=== PATIENT | male | born 1940 | race Hispanic/Latino ===

== ENCOUNTER 2016-08-19 22:17 | Observation (INO) | payer MEDICARE ==
[2016-08-19 22:45] VITALS: BMI 35.3
--- NOTE | 2016-08-19 22:55 | ED PDOC ---
Arrival/HPI - General Time Seen by Provider: 08/19/16 22:27 Historian: Patient - History of Present Illness Narrative History of Present Illness (Text): 08/19/16 22:55 Silvino Lynch is a 76 year old male, whose past medical history includes colon cancer s/p right hemicolectomy, PE, spinal stenosis, polyneuropathy of bilateral lower extremities, prostate cancer, melanoma, hypertension, and anxiety, who presents to the Emergency department complaining of near-syncope. Patient states he has been experiencing dizziness, headache, unsteady gait, and notes he feels near-syncopal at times. Patient state he saw his neurologist for similar complaints and was advised to come to the ED. Patient reports shortness of breath, none currently. Patient also complaining of left lower back spasms secondary to spinal stenosis today, worsened with movement, and right ankle swelling which began 3 days ago. Patient denies any fever, chills, chest pain, nausea, vomiting, diarrhea, urinary symptoms, neck pain, recent trauma/fall, or any other complaints. PMD: Dr. Paula Angel Neurologist: Dr. Pedraza Pain Management: Dr. Bass Symptom Onset: Gradual Symptom Course: Unchanged Activities at Onset: Rest, Light Context: Home Past Medical History - Provider Review Nursing Documentation Reviewed: Yes - Cardiac Hx Cardiac Disorders: Yes Hx Hypertension: Yes Hx Peripheral Edema: Yes - Pulmonary Hx Respiratory Disorders: Yes (MULTIPLE BILATERAL PULMONARY EMBOLUS 11-14-16) Hx Pneumonia: Yes - Neurological Hx Neurological Disorder: No (LOWER EXTREMITY NEUROPATHY) - HEENT Hx HEENT Disorder: Yes (WEARS GLASSES) - Renal Hx Renal Disorder: No - Endocrine/Metabolic Hx Endocrine Disorders: Yes Hx Hypothyroidism: Yes - Hematological/Oncological Hx Blood Disorders: No - Integumentary Hx Dermatological Disorder: Yes Hx Basal Cell Carcinoma: Yes (REMOVED FROM HEAD) Hx Melanoma: Yes (MOH'S SX) - Musculoskeletal/Rheumatological Hx Musculoskeletal Disorders: Yes Hx Back Pain: Yes (lumbar) Hx Falls: Yes Hx Fractures: Yes (right elbow) Hx Osteoarthritis: Yes - Gastrointestinal Hx Gastrointestinal Disorders: Yes (RIGHT HEMICOLECTOMY,COLON TUMOR REMOVED 2011 -COLON CA) Hx Gastroesophageal Reflux: Yes - Genitourinary/Gynecological Hx Genitourinary Disorders: Yes Hx Incontinence: Yes Hx Prostate Problems: Yes (elevated PSA,PROSTATE CA,BPH) - Psychiatric Hx Psychophysiologic Disorder: Yes Hx Anxiety: Yes Hx Depression: Yes Hx Substance Use: No - Surgical History Other/Comment: basal cell carcinoma removed from head - Anesthesia Hx Anesthesia: Yes Hx Anesthesia Reactions: No Hx Malignant Hyperthermia: No - Suicidal Assessment Feels Threatened In Home Enviroment: No Family/Social History - Physician Review Nursing Documentation Reviewed: Yes Family/Social History: No Known Family HX Smoking Status: Former Smoker Hx Alcohol Use: Yes (SOCIALLY) Hx Substance Use: No Hx Substance Use Treatment: No Allergies/Home Meds Allergies/Adverse Reactions: Allergies terazosin Allergy (Verified 08/19/16 22:39) RASH seasonal allergy Allergy (Mild, Uncoded 08/19/16 22:39) sneezing Home Medications: Home Meds Medication Instructions Recorded Confirmed Cholecalciferol (Vitamin D3) 2,400 unit NA DAILY 12/25/13 08/19/16 [Vitamin D3] Oxybutynin Chloride [Oxybutynin] 10 mg PO DAILY 12/25/13 08/20/16 Pantoprazole [Protonix] 40 mg PO DAILY 12/25/13 08/20/16 buPROPion SR [Wellbutrin SR] 150 mg PO BID 12/25/13 08/20/16 Diltiazem HCl [Cardizem Cd] 240 mg PO DAILY 11/15/15 08/20/16 Gabapentin [Neurontin] 400 mg PO QID 11/15/15 08/19/16 LORazepam [Ativan] 0.5 mg PO DAILY 11/15/15 08/20/16 Methocarbamol [Robaxin] 500 mg PO TID 11/15/15 08/19/16 Mirtazapine [Remeron] 15 mg PO DAILY 11/15/15 08/19/16 Apixaban [Eliquis] 10 mg PO BID 11/18/15 08/20/16 Aspirin [Ecotrin] 81 mg PO DAILY 11/18/15 08/19/16 Gabapentin [Neurontin] 800 mg PO HS 11/18/15 08/20/16 hydrALAZINE [Apresoline] 50 mg PO TID 11/18/15 08/19/16 Mirabegron [Myrbetriq] 65 mg PO DAILY 08/20/16 08/20/16 Review of Systems - Physician Review All systems were reviewed & negative as marked: Yes - Review of Systems Constitutional: Normal. absent: Fevers Eyes: Normal ENT: Normal Respiratory: SOB. absent: Cough Cardiovascular: Normal. absent: Chest Pain Gastrointestinal: Normal. absent: Abdominal Pain, Diarrhea, Nausea, Vomiting Genitourinary Male: Normal. absent: Dysuria, Frequency, Hematuria, Urinary Output Changes Musculoskeletal: Arthralgias (+right ankle swelling), Back Pain. absent: Neck Pain Skin: Normal. absent: Rash Neurological: Headache, Gait Changes (+unsteady), Other (+near-syncopal) Endocrine: Normal Hemo/Lymphatic: Normal Psychiatric: Normal Physical Exam Vital Signs Reviewed: Yes Vital Signs Temp Pulse Resp BP Pulse Ox 08/20/16 02:51 78 16 158/98 H 98 08/19/16 22:34 98.4 F 80 20 161/89 H 97 Temperature: Afebrile Blood Pressure: Hypertensive Pulse: Regular Respiratory Rate: Normal Appearance: Positive for: Well-Appearing, Non-Toxic, Comfortable Pain Distress: None Mental Status: Positive for: Alert and Oriented X 3 - Systems Exam Head: Present: Atraumatic, Normocephalic Pupils: Present: PERRL Extroacular Muscles: Present: EOMI Conjunctiva: Present: Normal Mouth: Present: Moist Mucous Membranes Neck: Present: Normal Range of Motion. No: Meningeal Signs, MIDLINE TENDERNESS , Paraspinal Tenderness Respiratory/Chest: Present: Clear to Auscultation, Good Air Exchange. No: Respiratory Distress, Accessory Muscle Use Cardiovascular: Present: Regular Rate and Rhythm, Normal S1, S2. No: Murmurs Abdomen: Present: Normal Bowel Sounds. No: Tenderness, Distention, Peritoneal Signs Back: Present: Normal Inspection Upper Extremity: Present: Normal Inspection. No: Cyanosis, Edema Lower Extremity: Present: Normal ROM, Swelling (Swelling to right lateral ankle) . No: Edema, Tenderness, Erythema, Deformity, Temperature Abnormalties Neurological: Present: GCS=15, CN II-XII Intact, Speech Normal Skin: Present: Warm, Dry, Normal Color. No: Rashes Psychiatric: Present: Alert, Oriented x 3, Normal Insight, Normal Concentration Medical Decision Making ED Course and Treatment: 08/19/16 22:55 Impression: 76 year old male complaining of near syncope, headache, and dizziness. Also complaining of shortness of breath, right ankle swelling, and left lower back pain. Plan: -- CTA Chest w/o contrast -- CT Head w/o contrast -- CT Lumbar Spine w/o contrast -- EKG -- Chest X-ray -- XR Right Ankle -- Labs, BNP, cardiac enzymes -- UA -- Reassess and disposition Prior Visits: Notes and results from previous visits were reviewed. Progress Notes: Reviewed EKG, NSR at 78 bpm. 1st degree AV block. Non-specific ST/T wave changes. 08/20/16 00:16 Reviewed Chest X-ray, shows no acute processes. XR Right Ankle shows no acute processes, no fracture. 08/20/16 01:53 CT Head shows: 1. No evidence for acute intracranial abnormality or displaced calvarial fracture. 2. Additional incidental and/or chronic findings as described. CTA Chest shows: 1. There is mild left hilar adenopathy. 2. There is no evidence for large or central pulmonary embolism. Motion artifact limits evaluation of smaller branches. 3. The lungs are free of significant consolidation, pleural effusion or pneumothorax. CT Lumbar Spine shows: 1. No fracture. 2. If back pain persists, consider MRI for further evaluation. 3. Incidental/non-acute findings are described above. 08/20/16 01:[address] Angel, who is aware and agrees with plan. Accepts pt in to his service. Pt will go to Telemetry observation for near-syncope. Requests Dr. Bay on consult and Dr. Alvarez on consult. - Lab Interpretations Lab Results: 08/19/16 23:20 08/19/16 23:20 Lab Results 08/20/16 00:02: Urine Color Yellow, Urine Appearance Clear, Urine pH 6.0, Ur Specific Worden 1.025, Urine Protein Negative, Urine Glucose (UA) Negative, Urine Ketones Negative, Urine Blood Negative, Urine Nitrate Negative, Urine Bilirubin Negative, Urine Urobilinogen 0.2, Ur Leukocyte Esterase Negative 08/19/16 23:20: WBC 5.2, RBC 3.70, Hgb 13.3 L, Hct 39.1 L, MCV 105.7 H, MCH 35.9 H, MCHC 34.0, RDW 13.4, Plt Count 189, MPV 11.0 08/19/16 23:20: Sodium 141, Potassium 4.6, Chloride 104, Carbon Dioxide 28, Anion Gap 14, BUN 18, Creatinine 1.1, Est GFR ( Amer) > 60, Est GFR (Non- Af Amer) > 60, Random Glucose 92, Calcium 9.5, Total Bilirubin 0.6, AST 59, ALT 84 H, Alkaline Phosphatase 48, Lactate Dehydrogenase 585, Total Creatine Kinase 144, Troponin I < 0.01 D, NT-Pro-B Natriuret Pep 113, Total Protein 7.5, Albumin 4.3, Globulin 3.2, Albumin/Globulin Ratio 1.3 08/19/16 23:20: PT 11.2, INR 1.04, APTT 31.0 H I have reviewed the lab results: Yes - RAD Interpretation Narrative RAD Interpretations (Text): Chest X-ray shows no acute processes. XR Right Ankle shows no acute processes, no fracture. CT Head shows: Brain: There is mild prominence of ventricles and sulci, compatible with mild atrophy. There is no evidence of intracranial hemorrhage. No evidence of acute territorial infarction. No significant white matter disease. No edema. Ventricles: See above. Bones/joints: Unremarkable. No acute fracture. Soft tissues: Unremarkable. Sinuses: Unremarkable as visualized. No acute sinusitis. Mastoid air cells: Unremarkable as visualized. No mastoid effusion. IMPRESSION: 1. No evidence for acute intracranial abnormality or displaced calvarial fracture. 2. Additional incidental and/or chronic findings as described. CTA Chest shows: Pulmonary arteries: There is no evidence for large or central pulmonary embolism. Motion artifact limits evaluation of smaller branches. Aorta: Thoracic aorta is mildly atherosclerotic without aneurysm. Lungs: Mild biapical scarring. Mild atelectasis and/or scarring in the bases. No mass. Pleural space: The lungs are free of significant consolidation, pleural effusion or pneumothorax. Heart: The heart is not enlarged. No significant pericardial effusion. No evidence of RV dysfunction. Mediastinum: Tiny hiatal hernia. Thyroid: The thyroid is normal in size and position. Bones/joints: There are moderate degenerative changes present. There is mild diffuse osteopenia. No acute fracture. No dislocation. Soft tissues: Unremarkable. Lymph nodes: There is mild left hilar adenopathy. There is no axillary adenopathy. There is no mediastinal lymphadenopathy. Upper abdomen: Scans through the upper abdomen demonstrate no definite acute abnormalities. IMPRESSION: 1. There is mild left hilar adenopathy. 2. There is no evidence for large or central pulmonary embolism. Motion artifact limits evaluation of smaller branches. 3. The lungs are free of significant consolidation, pleural effusion or pneumothorax. CT Lumbar Spine shows: Vertebrae: No acute fracture. Reversal of lumbar lordosis. Mild scoliosis. Facet osteoarthrosis within lumbar spine. Discs/spinal canal/neural foramina: [id number] degenerative disc disease throughout lumbar spine. Mild disc herniations at several levels, suboptimally evaluated. Severe central canal stenosis at L1-L2 level. Multilevel neuroforaminal narrowing. Soft tissues: Unremarkable. Vasculature: Atherosclerotic disease of visualized arteries. Mild aneurysmal dilatation of infrarenal aorta, up to 3.4 cm. Stomach and bowel: Colonic diverticula. IMPRESSION: 1. No fracture. 2. If back pain persists, consider MRI for further evaluation. 3. Incidental/non-acute findings are described above. Radiology Orders: 08/19/16 23:01 HEAD W/O CONTRAST [CT] Stat 08/19/16 23:03 CHEST PORTABLE [RAD] Stat ANKLE RIGHT 3 VIEWS ROUTINE [RAD] Stat 08/19/16 23:04 ANGIO CHEST PE PROTOCOL [CT] Stat 08/19/16 23:05 LUMBAR SPINE W/CONTRAST [CT] Stat Baller Tender: ED Physician, Radiologist - EKG Interpretation Interpreted by ED Physician: Yes Type: 12 lead EKG - Medication Orders Current Medication Orders: Discontinued Medications Acetaminophen (Tylenol 325mg Tab) 650 mg PO STAT STA Stop: 08/20/16 01:54 Last Admin: 08/20/16 02:19 Dose: 650 mg Cyclobenzaprine HCl (Flexeril) 10 mg PO ONCE ONE Stop: 08/20/16 01:54 Last Admin: 08/20/16 02:14 Dose: 10 mg Iodixanol (Visipaque 320 Mg/Ml 100 Ml) Confirm Administered Dose 100 ml IV .STK- MED ONE Stop: 08/20/16 00:29 - Scribe Statement The provider has reviewed the documentation as recorded by the Scribtali Amato All medical record entries made by the Scribe were at my direction and personally dictated by me. I have reviewed the chart and agree that the record accurately reflects my personal performance of the history, physical exam, medical decision making, and the department course for this patient. I have also personally directed, reviewed, and agree with the discharge instructions and disposition. Disposition/Present on Arrival - Present on Arrival Any Indicators Present on Arrival: No History of DVT/PE: Yes History of Uncontrolled Diabetes: No Urinary Catheter: No History of Decub. Ulcer: No History Surgical Site Infection Following: None - Disposition Have Diagnosis and Disposition been Completed?: Yes Diagnosis: Near syncope, Back pain Disposition: HOSPITALIZED Disposition Time: 02:50 Patient Plan: Observation Patient Problems: Current Active Problems Problem Status Onset Back pain Acute Near syncope Acute Condition: STABLE Referrals: Marin Angel MD [Primary Care Provider] - Follow up with primary
[2016-08-19 23:35] LABS: HEMATOCRIT 39.1 % (42.0-52.0); MEAN CELL VOLUME 105.7 fL (80.0-105.0); MEAN CORPUSCULAR HEMOGLOBIN 35.9 pg (25.0-35.0); RED CELL DISTRIBUTION WIDTH 13.4 % (11.5-14.5); WHITE BLOOD COUNT 5.2 10^3/ul (4.5-11.0)
[2016-08-19 23:48] LABS: INR 1.04 (0.93-1.08)
[2016-08-20] LABS: ALB/GLOB RATIO 1.3 (1.1-1.8); ALKALINE PHOSPHATASE 48 U/L (38-133); ALT/SGPT 84 U/L (7-56); AST/SGOT 59 U/L (15-59); BILIRUBIN,TOTAL 0.6 mg/dL (0.2-1.3); BLOOD UREA NITROGEN 18 mg/dL (7-21); CALCIUM 9.5 mg/dL (8.4-10.5); CARBON DIOXIDE 28 mmol/L (21-33); CHLORIDE 104 mmol/L (98-107); GFR AFRICAN-AMERICAN > 60; GLUCOSE,RANDOM 92 mg/dL (70-110); POTASSIUM 4.6 mmol/L (3.6-5.0); SODIUM 141 mmol/L (132-148); TOTAL PROTEIN 7.5 g/dL (5.8-8.3)
[2016-08-20 00:18] LABS: TROPONIN I < 0.01 ng/mL
[2016-08-20 00:28] LABS: URINE BILIRUBIN NEGATIVE (NEGATIVE); URINE BLOOD NEGATIVE (NEGATIVE); URINE GLUCOSE (UA) NEGATIVE (NEGATIVE); URINE KETONE NEGATIVE (NEGATIVE); URINE LEUKOCYTE ESTERASE NEGATIVE Leu/uL (NEGATIVE); URINE PROTEIN NEGATIVE mg/dL (<30 mg/dL); URINE UROBILINOGEN 0.2 E.U./dL (<1 E.U./dL)
[2016-08-20] MEDS ORDERED: Iodixanol 320 MG/ML 100 ML BOTTLE IV ONE (00:28)
[2016-08-20 00:29] LABS: URINE APPEARANCE CLEAR (CLEAR); URINE COLOR YELLOW (YELLOW)
--- NOTE | 2016-08-20 00:51 | CT ---
EXAM: CT Head Without Intravenous Contrast CLINICAL HISTORY: 76 years old, male; Pain; Headache; Headache not specified; Additional info: Dizzy TECHNIQUE: Axial computed tomography images of the head/brain without intravenous contrast. This CT exam was performed using one or more of the following dose reduction techniques: automated exposure control, adjustment of the mA and/or kV according to patient size, and/or use of iterative reconstruction technique. COMPARISON: No relevant prior studies available. FINDINGS: Brain: There is mild prominence of ventricles and sulci, compatible with mild atrophy. There is no evidence of intracranial hemorrhage. No evidence of acute territorial infarction. No significant white matter disease. No edema. Ventricles: See above. Bones/joints: Unremarkable. No acute fracture. Soft tissues: Unremarkable. Sinuses: Unremarkable as visualized. No acute sinusitis. Mastoid air cells: Unremarkable as visualized. No mastoid effusion. IMPRESSION: 1. No evidence for acute intracranial abnormality or displaced calvarial fracture. 2. Additional incidental and/or chronic findings as described.
--- NOTE | 2016-08-20 01:51 | CT ---
EXAM: CT Lumbar Spine With Intravenous Contrast CLINICAL HISTORY: 76 years old, male; Pain; Low back pain; Additional info: Back pain/hx. Spinal stenosis TECHNIQUE: Axial computed tomography images of the lumbar spine with intravenous contrast. This CT exam was performed using one or more of the following dose reduction techniques: automated exposure control, adjustment of the mA and/or kV according to patient size, and/or use of iterative reconstruction technique. Coronal and sagittal reformatted images were created and reviewed. CONTRAST: 100 mL of VISI administered intravenously. COMPARISON: No relevant prior studies available. FINDINGS: Vertebrae: No acute fracture. Reversal of lumbar lordosis. Mild scoliosis. Facet osteoarthrosis within lumbar spine. Discs/spinal canal/neural foramina: [id number] degenerative disc disease throughout lumbar spine. Mild disc herniations at several levels, suboptimally evaluated. Severe central canal stenosis at L1-L2 level. Multilevel neuroforaminal narrowing. Soft tissues: Unremarkable. Vasculature: Atherosclerotic disease of visualized arteries. Mild aneurysmal dilatation of infrarenal aorta, up to 3.4 cm. Stomach and bowel: Colonic diverticula. IMPRESSION: 1. No fracture. 2. If back pain persists, consider MRI for further evaluation. 3. Incidental/non-acute findings are described above.
[2016-08-20] MEDS: Pantoprazole 40 mg EC Tab PO SCH ×2 (09:38→09:39)
[2016-08-20] MEDS: diltiaZEM 240 mg/24 Hours CD Cap PO SCH (09:39)
[2016-08-20] MEDS: buPROPion SR 150 MG TABLET PO SCH ×2 (09:39→18:20)
[2016-08-20] MEDS: Methocarbamol 500 MG Tab PO SCH ×3 (09:39→18:20)
[2016-08-20] MEDS: MIRABEGRON PO SCH (09:40)
[2016-08-20] MEDS: CHOLECALCIFEROL SCH (09:40)
[2016-08-20] MEDS ORDERED: CHOLECALCIFEROL SCH (10:00)
--- NOTE | 2016-08-20 10:14 | RAD ---
PROCEDURE: Right Ankle Radiographs. HISTORY: swelling COMPARISON: None FINDINGS: BONES: Normal. No fracture. JOINTS: Normal. No osteoarthritis. Ankle mortise maintained. Talar dome intact SOFT TISSUES: Lateral soft tissue swelling without distal fibular abnormality. OTHER FINDINGS: None. IMPRESSION: Soft tissue swelling without acute articular or osseous abnormality.
--- NOTE | 2016-08-20 10:15 | RAD ---
HISTORY: dizzy COMPARISON: 11/15/2015 FINDINGS: LUNGS: No active pulmonary disease. PLEURA: No significant pleural effusion identified, no pneumothorax apparent. CARDIOVASCULAR: No radiographic findings to suggest acute or significant cardiovascular disease. OSSEOUS STRUCTURES: No significant abnormalities. VISUALIZED UPPER ABDOMEN: Normal. OTHER FINDINGS: None. IMPRESSION: No active disease. No significant interval change compared to the prior examination(s).
--- NOTE | 2016-08-20 10:37 | CARD ---
APPROVED REPORT EKG Measurement Heart [id number] MA 226P [id number] <Conclusion> Sinus rhythm with 1st degree AV block No change
--- NOTE | 2016-08-20 13:28 | CON ---
DATE: 08/20/2016 CHIEF COMPLAINT: Dizziness, headache and low back pain. HISTORY OF PRESENT ILLNESS: This is a 76-year-old man with past medical history of colon cancer, sta tus post right hemicolectomy, PE, on Eliquis, history of severe spinal stenosis, especially at L1-L2, history of chronic back pain, history of severe sensorimotor polyneuropathy in bilateral lower extre mities, likely the result of his underlying cancer, history of prostate cancer, melanoma, hypertensio n, anxiety, who was brought to the Emergency Department because of near syncope, felt dizziness in te mya of lightheadedness and diffuse pressure headache and feels unsteady on his gait. He mentions dora t he has been taking extra gabapentin than usual due to the severe back pain. His low back pain radi ates down both legs, left worse than right, has left lower back spasms, which is making it difficult to lie flat down, which is aggravated by movement and prolonged positions. He also has urinary urgen cy and cannot hold his urine at times. He is currently no longer dizzy. His blood pressures are sta ble, slightly hypertensive. He underwent a CAT scan of his lumbosacral spine, which showed severe ce ntral canal stenosis at L1-L2, multiple neuroforaminal narrowing, mild disk herniation in several lev els of the lumbar spine and degenerative arthritis. CT head showed no acute intracranial abnormaliti es. He follows a neurologist named Dr. Pedraza, and his pain management with Dr. Bass. No focal weakness of the extremities. PAST MEDICAL HISTORY: History of melanoma, history of prostate cancer, history of colon cancer, stat us post right hemicolectomy, history of PE on Eliquis, history of chronic low back pain, chronic spin al stenosis in the lumbosacral area, sensorimotor polyneuropathy done by EMG by his neurologist of th e bilateral lower extremities, likely from underlying cancer and prolonged alcohol use in the past. REVIEW OF SYSTEMS: A 14-point review of systems is negative except as in the HPI. ALLERGIES: ALLERGIC TO TERAZOSIN and has seasonal allergies. MEDICATIONS: Reviewed via nurse's reconciliation sheet. SOCIAL HISTORY: No illicit drug use, smoking, or ETOH abuse at this time. FAMILY HISTORY: Noncontributory. PHYSICAL EXAMINATION: VITAL SIGNS: Temperature 98.2, pulse rate 76, blood pressure 154/89, respiratory rate of 18, oxygen saturation 98% on room air. GENERAL: The patient is sitting up in bed in no acute distress. HEENT: Atraumatic, normocephalic. PERRLA, extraocular muscles are intact. NECK: Supple, no JVD, no adenopathy noted. LUNGS: Clear to auscultation. No adventitious sounds. HEART: S1, S2, normal rate and rhythm. No murmurs, rubs, or gallops. ABDOMEN: Soft, nontender, nondistended. Bowel sounds present. EXTREMITIES: No clubbing, no cyanosis. Peripheral pulses 2+ felt bilaterally. NEUROLOGIC: The patient is alert, oriented to person, place, month and year. Speech is fluent, with out any errors. Cranial nerves II through XII are intact. MOTOR: Moves all extremities equally. No atrophy noted. SENSORY: Decreased light touch and pinprick up to the calves bilaterally. Decreased vibration of th e toes and knees. Proprioception is intact. DTRs are 2+ throughout and 1 at the knees, and 1 at the ankles. COORDINATION: [id number] intact. GAIT: Deferred for now. MUSCULOSKELETAL: Has lumbosacral tightness. LABORATORY DATA: Sodium is 141, potassium 4.6, chloride 104, carbon dioxide 28, BUN of 18, creatinin e 1.1. Random glucose of 92. ASSESSMENT AND PLAN: This is a 76-year-old man with history of melanoma, history of prostate cancer, history of colon cancer, status post right hemicolectomy, history of pulmonary embolism on Eliquis, history of chronic low back pain with spinal stenosis on L1-L2, history of sensorimotor polyneuropath y in bilateral lower extremities, likely from cancer history, history of hypertension and anxiety who presented with dizziness, headache, unsteady gait and low back pain. His dizziness and headache is likely from his underlying pain from the low back as well as superimposed underlying overuse of his g abapentin that he has been popping extras which he admitted. His unsteady gait is from his underlyin g polyneuropathy from his underlying history of cancer which makes his gait unsteady and superimposed underlying lumbosacral stenosis. His low back pain, especially on the left, which is more of a lumb osacral radiculopathy, is likely from degenerative joint disease and his severe lumbar stenosis at L1 -L2, according to his CAT scan of lumbosacral spine causing him to be in intense pain. At this time, recommend: 1. An MRI of the lumbosacral spine to further assess the degree of stenosis. 2. Neurosurgical evaluation since this pain has become debilitating in his lower back. 3. Get pain management consultation for adjustment of his medications. 4. Avoid overuse of gabapentin gabapentin 400 mg p.o. q.i.d. and occasionally at bedtime of 80 0, but hold off 800 if he is feeling dizzy. 5. He is on methocarbamol 500 mg p.o. t.i.d. for low back pain spasms. 6. Continue his gabapentin minimum of 400 p.o. q.i.d. for neuropathic pain from his underlying polyn europathy from underlying malignancy. 7. Continue with aspirin and Eliquis for stroke prevention and continue with current present medical management. He will need physical therapy evaluation. May require subacute rehabilitation at this time. Thank you for this consult. Rickey Bay MD cc: [id number] TT: 08/20/2016 13:28:17 Confirmation # [id number] Dictation # [id number] tana
[2016-08-20] MEDS ORDERED: Pneumococcal 23-Valent Vaccine IM ONE (15:37)
--- NOTE | 2016-08-21 08:46 | CT ---
PROCEDURE: CT Chest with contrast (Pulmonary Angiogram) HISTORY: Shortness of breath. COMPARISON: 11/15/2015. Summary of findings on the comparison examination: Bilateral pulmonary emboli upper and lower lobe branches. TECHNIQUE: Axial computed tomography images were obtained of the chest in the pulmonary arterial phase of enhancement. Coronal and sagittal reformatted images were created and reviewed. Intravenous contrast dose: 100 cc Visipaque 320. Mean Hounsfield unit values in the main pulmonary artery: 305.08 Radiation dose: Total exam DLP = 11.89 mGy-cm. This CT exam was performed using one or more of the following dose reduction techniques: Automated exposure control, adjustment of the mA and/or kV according to patient size, and/or use of iterative reconstruction technique. FINDINGS: PULMONARY ARTERIES: Unremarkable. No pulmonary embolism. AORTA: No acute findings. No thoracic aortic aneurysm. LUNGS: Unremarkable. No nodule, mass or pulmonary consolidation. PLEURAL SPACES: Unremarkable. No effusion or pneuomothorax. HEART: Unremarkable. No cardiomegaly. No significant pericardial effusion. LYMPH NODES: No lymphadenopathy. BONES, CHEST WALL: Unremarkable. No fracture or destructive lesion OTHER FINDINGS: Unremarkable. IMPRESSION: Unremarkable CT pulmonary angiogram. No pulmonary embolus.Limitations of the current examination: Patient related motion induced artifact precludes optimal assessment at and beyond the segmental pulmonary artery branches level. Concordant results (preliminary interpretation) provided by Gongpingjia. Procedure Completed: 00:35. Preliminary ([facility]) Report: Dictated and Authenticated: 01:09. Final Interpretation: 08:44. August 21, 2016.
[2016-08-21] MEDS: oxyCODONE 5 mg Immediate Release Tab PO PRN (09:13)
[2016-08-21] MEDS: diltiaZEM 240 mg/24 Hours CD Cap PO SCH (09:14)
[2016-08-21] MEDS: CHOLECALCIFEROL SCH (09:15)
[2016-08-21] MEDS: MIRABEGRON PO SCH (09:16)
[2016-08-21] MEDS: Methocarbamol 500 MG Tab PO SCH ×3 (09:22→17:53)
--- NOTE | 2016-08-21 10:02 | CARD ---
APPROVED REPORT EKG Measurement Heart [id number] VT [id number] [id number] <Conclusion> Sinus rhythm with 1st degree AV block Leftward axis No change
--- NOTE | 2016-08-21 10:42 | CP.PCM.PN ---
Subjective - Date & Time of Evaluation Date of Evaluation: 08/21/16 Time of Evaluation: 10:40 - Subjective Subjective: came to see pt but he just left for MRI will see tmw after MRI Objective - Vital Signs/Intake and Output Vital Signs (last 24 hours): Temp Pulse Resp BP Pulse Ox 97.8 F 62 20 123/57 L 93 L 08/21/16 06:00 08/21/16 06:00 08/21/16 06:00 08/21/16 06:00 08/21/16 06:00 Intake and Output: 08/21/16 08/21/16 06:59 18:59 Intake Total 420 Output Total 1175 Balance -755 - Medications Medications: Current Medications Apixaban (Eliquis) 10 mg PO BID [facility] PRN Reason: Protocol Last Admin: 08/21/16 09:13 Dose: 10 mg Aspirin (Ecotrin) 81 mg PO DAILY [facility] Last Admin: 08/21/16 09:13 Dose: 81 mg Bupropion HCl (Wellbutrin Sr 150 Mg) 150 mg PO BID [facility] Last Admin: 08/20/16 18:20 Dose: 150 mg Diltiazem HCl (Cardizem Cd) 240 mg PO DAILY [facility] Last Admin: 08/21/16 09:14 Dose: 240 mg Gabapentin (Neurontin) 800 mg PO HS [facility] Last Admin: 08/20/16 22:46 Dose: 800 mg Gabapentin (Neurontin) 400 mg PO QID [facility] PRN Reason: Protocol Last Admin: 08/21/16 09:21 Dose: 400 mg Hydralazine HCl (Apresoline) 50 mg PO TID [facility] Last Admin: 08/21/16 09:22 Dose: 50 mg Lorazepam (Ativan) 0.5 mg PO DAILY [facility] PRN Reason: Protocol Last Admin: 08/21/16 09:14 Dose: 0.5 mg Methocarbamol (Robaxin) 500 mg PO TID [facility] Last Admin: 08/21/16 09:22 Dose: 500 mg Mirtazapine (Remeron) 15 mg PO DAILY [facility] Last Admin: 08/21/16 09:21 Dose: 15 mg Non-Formulary Medication (Mirabegron [Myrbetriq]) 65 mg PO DAILY [facility] Last Admin: 08/21/16 09:16 Dose: Not Given Non-Formulary Medication (Cholecalciferol (Vitamin D3) [Vitamin D3]) 2,400 unit NA DAILY [facility] Last Admin: 08/21/16 09:15 Dose: Not Given Oxycodone HCl (Oxycodone Immediate Release Tab) 5 mg PO Q6H PRN PRN Reason: Arthritis Last Admin: 08/21/16 09:13 Dose: 5 mg Pantoprazole Sodium (Protonix Ec Tab) 40 mg PO DAILY [facility] Last Admin: 08/20/16 09:39 Dose: 40 mg - Labs Labs: PT 11.2 Seconds (9.9-11.8) 08/19/16 23:20 INR 1.04 (0.93-1.08) 08/19/16 23:20 APTT 31.0 Seconds (23.7-30.8) H 08/19/16 23:20
[2016-08-21] MEDS: buPROPion SR 150 MG TABLET PO SCH ×2 (11:48→17:55)
--- NOTE | 2016-08-21 12:17 | MRI ---
PROCEDURE: MR LUMBAR SPINE WITHOUT CONTRAST HISTORY: lumbar radiculoapthy COMPARISON: 08/20/2016 TECHNIQUE: Multiecho multiplanar sequences were performed through the lumbar spine without the use of intravenous contrast. FINDINGS: Normal lumbar lordosis. Vertebral body heights are preserved. Marrow signal unremarkable. Conus medullaris unremarkable at the level of T12/L1 Paraspinal soft tissues are unremarkable. Multilevel disc desiccation and loss of height is noted. L1-2 disc bulge with facet arthropathy contribute to severe central canal stenosis and bilateral foraminal stenosis. L2-3 disc bulge with thecal sac indentation. L3-4 disc bulge with facet arthropathy contributing to moderate central canal stenosis with right facet joint effusion. L4-5 disc bulge with endplate discogenic changes and severe bilateral foraminal stenosis and mild to moderate central canal stenosis. L5-S1 disc bulge with a roughly 5 millimeter possible fragment in the right lateral recess. OTHER FINDINGS: None. IMPRESSION: L1-2 disc bulge with facet arthropathy contribute to severe central canal stenosis and bilateral foraminal stenosis. L2-3 disc bulge with thecal sac indentation. L3-4 disc bulge with facet arthropathy contributing to moderate central canal stenosis with right facet joint effusion. L4-5 disc bulge with endplate discogenic changes and severe bilateral foraminal stenosis and mild to moderate central canal stenosis. L5-S1 disc bulge with a roughly 5 millimeter possible fragment in the right lateral recess.
--- NOTE | 2016-08-21 16:49 | CON ---
DATE: 08/21/2016 Cardiology consultation (for Dr. Alvarez). HISTORY OF PRESENT ILLNESS: The patient is a 76-year-old male who presents with ongoing dizziness fo r the past several weeks. He has been evaluated by a neurologist with questionable results. The patient continues to complain of dizziness. His description is even in the lying down position, when he moves his head he gets dizzy. The patient denies shortness of breath, denies chest pain. He is on an anticoagulant because of a hi story of acute pulmonary embolism in the past. His cardiac risk factors include hypertension and is on aspirin and questionable hypercholesterolemia . SOCIAL HISTORY: The patient denies smoking. REVIEW OF SYSTEMS: A 14-point review of systems is dominated by his dizziness, no chest pain noted. PHYSICAL EXAMINATION: VITAL SIGNS: Blood pressure 113/65, heart rate is in the 70s, normal sinus rhythm. NECK: Negative JVD. LUNGS: Without rales. HEART: With S1, S2. EXTREMITIES: Without edema. The patient is morbidly obese. EKG shows normal sinus rhythm with left anterior hemiblock, the first troponin is negative. LABORATORIES: Hemoglobin is 13.3. The MCV is 105. IMPRESSION: 1. Recurrent dizziness, which is chronic. 2. The patient's cardiac workup, which includes echo and stress test done last year, were all unrema rkable. The patient has good left ventricular function. 3. Hypertension. 4. Morbid obesity. 5. History of acute pulmonary embolism in the past and the patient is continued on anticoagulation. Given these findings, there is no evidence for a cardiac cause of his chronic dizziness. I will need to rule out a neurologic cause including vestibular dysfunction. Will discontinue telemetry today. Jh Holder MD cc: [id number] TT: 08/21/2016 16:48:44 Confirmation # [id number] Dictation # [id number] mina
--- NOTE | 2016-08-21 21:43 | PN ---
DATE: 08/21/2016 CHIEF COMPLAINT: Follow up for low back pain, dizziness and headache. SUBJECTIVE: The patient is no longer dizzy. It has some vertiginous component to it, likely vestibu lar rather than central. He had an MRI for his back pain. It is bearable, but he is sitting up in t he chair with no difficulty. He had an MRI of the lumbosacral spine, which showed L1-L2 disk bulging with facet arthropathy contributing to severe central canal stenosis and bilateral foraminal stenosi s, L2-L3 disk bulge with thecal sac indentation, L3-L4 disk bulge with facet arthropathy and chronic to moderate central canal stenosis, right facet joint effusion, L4-L5 disk bulge with discogenic feldman ges, severe bilateral foraminal stenosis, mild to moderate central canal stenosis and L5-S1 disk bulg e of roughly 5 mm possible fragment in the right lateral recess. He is awaiting neurosurgical evalua tion. He is on gabapentin for neuropathic pain as well as methocarbamol. Will need PT assessment. 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 REVIEW OF SYSTEMS: A 14-point review of systems is negative except as in the HPI. ALLERGIES: TERAZOSIN. CURRENT MEDICATIONS: Reviewed via nurse's reconciliation sheet. SOCIAL HISTORY: No illicit drug use, smoking, or EtOH abuse. FAMILY HISTORY: Noncontributory. PHYSICAL EXAMINATION: VITAL SIGNS: Temperature 97.7, pulse rate of 66, blood pressure 115/68, respiratory rate of 18. GENERAL: The patient is sitting up in the chair, in no acute distress. HEENT: Atraumatic, normocephalic. PERRLA. Extraocular muscles intact. NECK: Supple, no JVD, no adenopathy noted. LUNGS: Clear to auscultation. No adventitious sounds. HEART: S1, S2, normal rate and rhythm. No murmurs, rubs, or gallops. ABDOMEN: Soft, nontender, nondistended. Bowel sounds are present. EXTREMITIES: No clubbing, no cyanosis. Peripheral pulses 2+ felt bilaterally. NEUROLOGIC: The pat ient is alert, oriented to person, place, month and year. Speech is fluent, without any errors. Perinatal Specialist nial nerves II-XII are intact. Motor: Moves all extremities equally. No atrophy noted. Sensory: Decreased light touch and pinprick up to the calves bilaterally. Decreased vibration of the toes and knees. Proprioception is intact. DTRs are 2+ throughout, 1 at the ankles and 1 at the knees. Coor dination: [id number] intact. MUSCULOSKELETAL: Has lumbosacral tightness. Gait is deferred for now. LABORATORY: Today's magnesium is 1.8. MRI of the lumbosacral spine as above. ASSESSMENT AND PLAN: This is a 76-year-old man with history of melanoma, history of prostate cancer, history of colon cancer status post right hemicolectomy, history of pulmonary embolism on Eliquis, h istory of chronic low back pain with spinal stenosis at L1-L2, history of sensorimotor polyneuropathy in bilateral lower extremities likely from his underlying history of malignancy, history of hyperten jewell and anxiety who presented with dizziness, headache, unsteady gait and low back pain. His dizzin ess is more of a spinning sensation of the room with lightheadedness. It might be vestibular in natu re. His unsteady gait is secondary to underlying sensorimotor polyneuropathy and superimposed underl sinai lumbosacral stenosis. His low back pain is likely especially on the left is more of a lumbosacr al radiculopathy from likely degenerative joint disease with severe lumbar stenosis at L1-L2 which sh ows severe central canal stenosis and bilateral foraminal stenosis, especially at L1-L2 along with L2 -L3 disk bulge and thecal sac indentation, along with L4-L5 disk bulging discogenic changes, severe b ilateral foraminal stenosis with mild to moderate central canal stenosis at L4-L5, likely all related to his low back pain. At this time, would recommend: 1. Neurosurgical intervention for his low back pain, especially at L1-L2, L4-L5 level since his back pain is debilitating. 2. Pain management consultation. 3. Continue with gabapentin and advise no overuse since the patient was taking extra gabapentin pill s at home, which can relate to his dizziness. 4. Continue his methocarbamol 500 mg p.o. t.i.d. for lower back spasms. 5. Will need PT, OT and possibly subacute rehab. 6. At this time, continue his Eliquis and aspirin for stroke prevention. Continue current present m edical management. Thank you for this followup. Will see him as an outpatient. Rickey Bay MD cc: [phone] TT: 08/21/2016 21:42:02 Confirmation # [id number] Dictation # [id number] mn
[2016-08-22] MEDS: oxyCODONE 5 mg Immediate Release Tab PO PRN ×2 (06:49→17:11)
--- NOTE | 2016-08-22 09:01 | PN ---
DATE: 08/21/2016 SUBJECTIVE: The patient is comfortable, no distress, no chest pain. Seen by neurologist for his derik k pain. Still having problem with the back. The patient back on Eliquis. Woke up with severe heada jesi. Still has a lot of neck pain. He is still has incontinence, multiple medical issues. The brooks ent has difficulty sitting by himself at home with his multiple . PHYSICAL EXAMINATION: VITAL SIGNS: Temperature 97.8, heart rate 61, blood pressure 123/57, respirations 20, saturation 93% on room air. HEAD AND NECK: Normal. No JVD, no thyromegaly. CHEST: Clear, good entry. CARDIAC: First sound, second sound normal. ABDOMEN: Soft, obese, nontender. EXTREMITIES: No edema on the left. Right ankle edema and tenderness. NEUROLOGIC: Normal. LABORATORY DATA: The patient had lumber spine MRI, which was done today, which shows disk bulge with facet arthropathy, to severe central canal stenosis and bilateral foraminal stenosis, and that is also in L1-L2, L3-L4, and also right facet joint effusion on L3-L4, L4-L5 same, severe bilateral foraminal stenosis, mild to moderate central stenosis. Also L5-S1 disk bulge with roughly 5 m m possible fragment in the right lateral recess. IMPRESSION AND PLAN: 1. Severe intractable back pain. We will give oxycodone. Will add muscle relaxants. Also, will gi ve him Lyrica. Will get physical therapy involved and will follow up clinically. 2. Urinary incontinence, severe headache, severe intractable headache with neck pain. Will consider further evaluation, MRI of the neck, head. Neurology consult. Postvoid ultrasounds. 3. Right ankle edema, swelling, and pain. Get venous Doppler. History of pulmonary embolism in the past, possibly from deep vein thrombosis of lower extremity, although was not seen, but continue Becca nishant for now. Continue current therapy. 4. The patient also had morbid obesity. Advised to get weight loss surgery. His BMI 33. May be we should consider weight loss medications and biking. Continue current therapy. Follow up clini lea. Marin Angel MD cc: [phone] TT: 08/21/2016 23:56:28 Confirmation # [id number] Dictation # [id number] dn
--- NOTE | 2016-08-22 09:01 | HP ---
HISTORY OF PRESENT ILLNESS: The patient came because of severe intractable back pain, cannot move. Also, patient complained of intractable headaches, severe neck pain, incontinence and multiple other medical problems. HISTORY OF PRESENT ILLNESS: The patient is a 76-year-old male, obese, hypertensive, history of colon cancer; PE, on Eliquis; with history of back pain. Came in to the hospital for severe back pain, co uld not get up at home. He lives by himself. The patient called the ambulance who brought him in he re. He also complained of severe intractable ____ headaches; that he got up in the morning every mor thanh with severe headache. The patient came in for further evaluation, could not walk, and brought i n for further evaluations. The patient does have history of back pain. He got ____ epidural injecti on in the past which helped for a couple of weeks, by Dr. Bass, came back again. The pain was sev ere and seems getting worse. He also had severe back pain, could not get up, cannot ambulate. He do es have some numbness in his legs which is diagnosed as peripheral neuropathy. He was on Lyrica whic h was not helping. 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 Sow. ALLERGIES: SEASONAL ALLERGY AND ALSO TERAZOSIN. FAMILY HISTORY: Noncontributory. REVIEW OF SYSTEMS: As in the present illness as above. PHYSICAL EXAMINATION: On 08/20/2016: VITAL SIGNS: His temperature 97, heart rate 62, blood pressure 134/64, respirations 20, saturation 9 8%. HEAD AND NECK: Normal. No JVD, no thyromegaly. CHEST: Clear, good air entry. CARDIAC: First sound, second sound normal. ABDOMEN: Obese, nontender. EXTREMITIES: Mild ankle edema. NEUROLOGIC: Normal. LABORATORY DATA: White count 5.2, hemoglobin 13.3, hematocrit 39.1, platelet is 189. Chemistry: So dium 141, potassium 4.6, chloride 104, bicarb 28, BUN 18, creatinine 1.1. Liver function test is nor mal except ALT 84; AST is normal, reyna phos is normal. Troponin negative. CPK is normal. PT is nor mal. PTT 31, slightly elevated. The patient also had a urinalysis which is negative. The patient also had a chest x-ray and an ankle x-ray, head CT. When he came in, his chest x-ray was done, which shows no active disease. Also, ankle x-ray showed normal. There is lateral soft tissue swelling without distal fibular abnormalities. X-ray was done on the right ankle. Also, patient fulton d a head CT on admission, which showed no evidence of acute intracranial abnormality or displaced ___ _ fracture. The patient also had electrocardiogram which was read as sinus rhythm, first degree AV b lock. IMPRESSION AND PLAN: 1. A 76-year-old male, multiple medical problems, could not get up because of severe and intractable back pain, came to the Emergency Room complaint of back pain, neck pain, headaches, intractable; inc ontinence, and ankle pain and swelling. The patient will be admitted for evaluations. We will get a lso Dr. Rickey Bay for neurology consult for his back pain. Also will admit him for severe intrac table back pain, headache and neck pain. Will do MRIs for his head and neck also. 2. History of pulmonary embolism, not taking his anticoagulants. He got 10 mg b.i.d. because he was not taking it for a while, a couple months, continuously, and I did discuss with him risk of reformi ng clots and rebound clots. Should stop it only 3 days prior to any surgery or operations, that is m ore than enough, and resume it after. The patient understands. Will also resume Eliquis. 3. Hypertension, morbid obesity, peripheral neuropathy, has prostate enlargement with possibly overf low incontinence, some urgency. Will get urology consult, Dr. Sow, to see the patient at this ti me. Also, will put him back on his medications and will follow up clinically. 4. Will give him oxycodone for back pain and further evaluation to follow. Marin Angel MD cc: [phone] TT: 08/22/2016 08:51:33 mn
[2016-08-22] MEDS: Pantoprazole 40 mg EC Tab PO SCH (09:42)
[2016-08-22] MEDS: Methocarbamol 500 MG Tab PO SCH ×3 (09:50→17:33)
[2016-08-22] MEDS: diltiaZEM 240 mg/24 Hours CD Cap PO SCH (09:55)
[2016-08-22] MEDS: MIRABEGRON PO SCH (10:00)
[2016-08-22] MEDS: CHOLECALCIFEROL SCH (10:51)
[2016-08-22] MEDS: buPROPion SR 150 MG TABLET PO SCH ×2 (11:15→17:11)
--- NOTE | 2016-08-22 11:55 | CP.PCM.CON ---
History of Present Illness - History of Present Illness History of Present Illness: SPINE CONSULT Pt seen and examined. Full consult dictated. Rec decompressive laminectomy to alleviate severe stenosis at L1-2, 3-4, and 4-5 levels. Past Patient History - Past Medical History & Family History Past Medical History?: Yes - Past Social History Smoking Status: Former Smoker - CARDIAC Hx Cardiac Disorders: Yes Hx Hypertension: Yes Hx Peripheral Edema: Yes - PULMONARY Hx Respiratory Disorders: Yes (MULTIPLE BILATERAL PULMONARY EMBOLUS 11-15-15) Hx Pneumonia: Yes - NEUROLOGICAL Hx Neurological Disorder: No (LOWER EXTREMITY NEUROPATHY) Other/Comment: NEAR SYNCOPE - HEENT Hx HEENT Problems: Yes (WEARS GLASSES) - RENAL Hx Chronic Kidney Disease: No - ENDOCRINE/METABOLIC Hx Endocrine Disorders: Yes Hx Hypothyroidism: Yes - HEMATOLOGICAL/ONCOLOGICAL Hx Blood Disorders: No - INTEGUMENTARY Hx Dermatological Problems: Yes 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) Hx Melanoma: Yes (MOH'S SX) - MUSCULOSKELETAL/RHEUMATOLOGICAL Hx Musculoskeletal Disorders: Yes Hx Back Pain: Yes (lumbar) Hx Falls: Yes Hx Fractures: Yes (right elbow) Hx Osteoarthritis: Yes Hx Spinal Stenosis: Yes - GASTROINTESTINAL Hx Gastrointestinal Disorders: Yes (RIGHT HEMICOLECTOMY,COLON TUMOR REMOVED 2011 -COLON CA) Hx Gastroesophageal Reflux: Yes - GENITOURINARY/GYNECOLOGICAL Hx Genitourinary Disorders: Yes Hx Incontinence: Yes Hx Prostate Problems: Yes (elevated PSA,PROSTATE CA,BPH) - PSYCHIATRIC Hx Psychophysiologic Disorder: Yes Hx Anxiety: Yes Hx Depression: Yes - SURGICAL HISTORY Hx Surgeries: Yes Other/Comment: basal cell carcinoma removed from head - ANESTHESIA Hx Anesthesia: Yes Hx Anesthesia Reactions: No Hx Malignant Hyperthermia: No Meds Allergies/Adverse Reactions: Allergies Allergy/AdvReac Type Severity Reaction Status Date / Time terazosin Allergy RASH Verified 08/20/16 11:23 seasonal allergy Allergy Mild sneezing Uncoded 08/20/16 11:23 - Medications Medications: Current Medications Apixaban (Eliquis) 10 mg PO BID [facility] PRN Reason: Protocol Last Admin: 08/22/16 09:50 Dose: 10 mg Aspirin (Ecotrin) 81 mg PO DAILY [facility] Last Admin: 08/22/16 09:50 Dose: 81 mg Bupropion HCl (Wellbutrin Sr 150 Mg) 150 mg PO BID [facility] Last Admin: 08/22/16 11:15 Dose: 150 mg Diltiazem HCl (Cardizem Cd) 240 mg PO DAILY [facility] Last Admin: 08/22/16 09:55 Dose: 240 mg Gabapentin (Neurontin) 800 mg PO HS [facility] Last Admin: 08/21/16 21:14 Dose: 800 mg Gabapentin (Neurontin) 400 mg PO QID [facility] PRN Reason: Protocol Last Admin: 08/22/16 09:50 Dose: 400 mg Hydralazine HCl (Apresoline) 50 mg PO TID [facility] Last Admin: 08/22/16 09:51 Dose: 50 mg Lorazepam (Ativan) 0.5 mg PO DAILY [facility] PRN Reason: Protocol Last Admin: 08/22/16 09:42 Dose: 0.5 mg Methocarbamol (Robaxin) 500 mg PO TID [facility] Last Admin: 08/22/16 09:50 Dose: 500 mg Mirtazapine (Remeron) 15 mg PO DAILY [facility] Last Admin: 08/22/16 10:04 Dose: 15 mg Non-Formulary Medication (Mirabegron [Myrbetriq]) 65 mg PO DAILY [facility] Last Admin: 08/22/16 10:00 Dose: Not Given Non-Formulary Medication (Cholecalciferol (Vitamin D3) [Vitamin D3]) 2,400 unit NA DAILY [facility] Last Admin: 08/22/16 10:51 Dose: Not Given Oxycodone HCl (Oxycodone Immediate Release Tab) 5 mg PO Q6H PRN PRN Reason: Arthritis Last Admin: 08/22/16 06:49 Dose: 5 mg Pantoprazole Sodium (Protonix Ec Tab) 40 mg PO DAILY [facility] Last Admin: 08/22/16 09:42 Dose: 40 mg Pregabalin (Lyrica) 50 mg PO BID [facility] Last Admin: 08/22/16 09:42 Dose: 50 mg Results - Vital Signs Recent Vital Signs: Last Vital Signs Temp 97.8 F 08/22/16 05:24 Pulse 58 L 08/22/16 09:55 Resp 20 08/22/16 05:24 BP 126/51 L 08/22/16 09:55 Pulse Ox 96 08/22/16 05:24 - Labs Result Diagrams: 08/19/16 23:20 08/19/16 23:20
--- NOTE | 2016-08-22 15:03 | PCM.URO ---
Urology Progress Note - Objective Intake & Output: Intake & Output 08/21/16 08/22/16 08/22/16 18:59 06:59 18:59 Intake Total 1380 Output Total 2250 Balance -870 Weight 271 lb 276 lb Intake: Oral 1380 Output: Urine 2250 Urine, Voided 2250 Other: # Bowel Movements 0 0 Vital Signs: Vital Signs - 24 hr 08/21/16 08/21/16 08/21/16 16:55 18:00 19:11 Temperature 97.7 F Pulse Rate 73 66 70 Respiratory 18 Rate Blood Pressure 115/68 O2 Sat by Pulse Oximetry 08/22/16 08/22/16 08/22/16 00:01 05:24 09:51 Temperature 97.3 F L 97.8 F Pulse Rate 66 58 L 58 L Respiratory 18 20 Rate Blood Pressure 117/73 126/51 L 126/51 L O2 Sat by Pulse 96 96 Oximetry 08/22/16 08/22/16 08/22/16 09:55 12:00 14:13 Temperature 98.4 F Pulse Rate 58 L 80 89 Respiratory 21 Rate Blood Pressure 126/51 L 122/73 122/73 O2 Sat by Pulse Oximetry
--- NOTE | 2016-08-22 16:18 | PN ---
DATE: 08/22/2016 REASON FOR CONSULTATION AND FOLLOWUP: Complaining of back pain, lumbar pain, neck pain and dizziness . BRIEF CLINICAL HISTORY: This is a 76-year-old male with past medical history significant for multipl e cancers including prostate CA, colon cancer, right hemicolectomy, melanoma, peptic ulcer disease, h ypertension, complaining of multiple cancers as mentioned above, admitted with complaint of lumbar pa in and neck pain, history of radiculopathy and feels dizziness. Denies any chest pain, shortness of breath, any palpitation. PAST MEDICAL HISTORY: Significant for hypertension, neuropathy, spinal stenosis, peptic ulcer diseas e, obesity and past cancer, history of colon cancer as well as prostate CA, history of post-hemicolec luis. PAST SURGICAL HISTORY: Significant for right hemicolectomy in 2009, multiple surgeries. FAMILY HISTORY: Significant for coronary artery disease. Both parents had coronary artery disease. SOCIAL HISTORY: Denies any history of smoking, quit smoking in 1988. Recent cardiac workup as follows: The patient had an echocardiography 11/16/2015 that showed ejection fraction 55%, RV moderately dilated, trace aortic regurgitation, trace to mild mitral regurgitation, mild tricuspid regurgitation, RV systolic pressure of 35. The patient had a stress test 10/27/2014 th at shows normal myocardial perfusion study. CURRENT MEDICATIONS: The patient is taking at home, hydralazine, Diazepam, ibuprofen, Protonix, Patti janelle, lorazepam, aspirin, Eliquis 10 mg b.i.d. EKG admitting shows sinus, first degree AV block, left axis deviation. REVIEW OF SYSTEMS: As per HPI. PHYSICAL EXAMINATION: VITAL SIGNS: Temperature afebrile, heart rate 89, blood pressure 122/73. HEENT: PERRLA. Extraocular muscles intact. NECK: Supple. No carotid bruits. No thyromegaly. CHEST: Clear to auscultation. HEART: S1, S2 regular. ABDOMEN: Soft. EXTREMITIES: Clubbing and cyanosis negative. BLOOD WORKUP: As follows: WBC ____, hemoglobin ____, hematocrit 39.1, platelet count 189. Chemistr y shows sodium 141, potassium ____, chloride 104, carbon dioxide 28, anion gap of 14, BUN 18, creatin ine 1.1. Troponin 0.01, negative. IMPRESSION: No evidence of acute myocardial infarction, no evidence of acute coronary syndrome, obes ity, cervical and lumbar radiculopathy, history of ____ 3 years ago, was negative. Echo ____ history of multiple cancers including colon cancer, prostate cancer, arthritis, back pain, history of deep v enous thrombosis x 2. The patient is on Eliquis. History of spinal stenosis. RECOMMENDATION: Continue workup for back pain. We will discontinue telemetry. We will follow with you. Thank you, Dr. Angle, for providing the opportunity in taking care of the patient. Judah Alvarez MD cc: [id number] TT: 08/22/2016 16:17:17 Confirmation # [id number] Dictation # [id number] tana
[2016-08-22] MEDS ORDERED: Bisacodyl 5mg EC Tab PO ONE (17:13)
[2016-08-22] MEDS ORDERED: Magnesium Hydroxide Susp 30 ml UD PO PRN (17:15)
--- NOTE | 2016-08-22 17:27 | CON ---
DATE: 08/22/2016 REASON FOR CONSULTATION: Difficulty walking with intractable back pain. HISTORY OF PRESENT ILLNESS: The patient is a 76-year-old gentleman who states that he has had a hist ory of issues with his lower back and difficulty walking. He states it has been progressively gettin g worse. Five years ago he states it was not that bad and he could get around fairly well, but now mahamed cesar has difficulty ambulating. He notes that if he walks leaning forward on a cart or so that seems to be better. He has seen a pain management physician in the past, had multiple epidural injections, b ut they did not really help at all. He has numbness in the legs with ambulating and was diagnosed as having peripheral neuropathy, although Lyrica he notes has not helped at all. He has a history of i ncontinence with prostate cancer. He states he had the incontinence before his radiation treatments and it seemed to be a little worse if anything after the radiation treatments. No bowel incontinence that he reports. He just states this has become incapacitating at this point. PAST MEDICAL HISTORY: Listed as above with a history of pulmonary embolism for which he is presently on Eliquis. He has had several episodes of DVTs. He has a history of colon resection for cancer as well as the radiation therapy for his prostate cancer. He had chemotherapy after the colon cancer. He has a history of hypertension as well. Surgeries are listed as above. MEDICATIONS: Listed on the chart. ALLERGIES: HE HAS SEASONAL ALLERGIES ALONG AN ALLERGY TO TERAZOSIN. PHYSICAL EXAMINATION: He is able to move both legs actively. Sensory is intact, though a little dec reased to light touch. Motor-salas he seemed to be intact. When examined he was sitting out of bed i n a chair with his legs up. Has a fair amount of crepitation in knees and he states he has had injec tions of the knees done at the [facility] in the past, which did not really help. A gait exam was d eferred at this time. Distal pulses are fair. No clonus or Babinski's present. I reviewed his lumbar MRI which shows severe stenosis at L1-L2. He has loss of disk space partially at L2-L3 with auto-fusion the anterior part of the vertebral bodies. He has a fair amount of lateral recess and foraminal stenosis at L3-L4 and L4-L5 with disk desiccation and degeneration at the L3-L4 , L4-L5, and L5-S1 levels. No obvious vertebral body abnormalities otherwise. IMPRESSION: Severe spinal stenosis. Obviously, I do not how long he has had it at L1-L2, but he is right at the level where that could be playing a part in his incontinence. Obviously, that will be c ompletely difficult to separate from his history of prostate cancer with his subsequent radiation the rapy. However, I think in general patients with this degree of stenosis from scientific studies have an 80% to 85% chance of having improvement of their back pain and improvement of their gait followin g a decompressive laminectomy. I explained that nothing in life is100%, we are not waving a wand to make him 31 again, but he notes that his mother had a laminectomy done a couple years before she pass ed away and noted a marked amount of improvement with her ability to get around and the amount of shobha n she had, so he seems to be on board to try and get this done to give himself some chance of getting better. I will speak to you in reference to how much time we need to have him off the Eliquis to be able to safely go ahead with the surgery. Given the multiple levels of degenerative changes, no fus ion is planned at this point and just strictly laminectomy done. Although the L1-L2 level is absolut chiki the worst, given him having to be off the anticoagulant therapy and risk of anesthesia, etc. I wo uld absolutely do the 3 levels in 1 sitting in order to hopefully avoid any other procedures down the line. He is agreeable with this, but wishes to speak with you and I will give you a call to advise you the same and will be happy to proceed accordingly as you say. Thank you for allowing me to participate in the care of your patient. Natan Hernadez MD cc: [id number] TT: 08/22/2016 17:27:08 Confirmation # [id number] Dictation # [id number] rosaura
--- NOTE | 2016-08-22 19:06 | US ---
HISTORY: Leg pain and swelling. Evaluate for DVT PHYSICIAN(S): Jh Benitez MD. TECHNIQUE: Duplex sonography and color-flow Doppler with graded compression were used to evaluate the deep venous systems of both lower extremities. FINDINGS: The visualized deep venous systems of both lower extremities are sonographically normal and compressible. Normal wave forms and augmentation are seen. There is no sonographic evidence for deep venous thrombosis in the visualized segments of both lower extremities. IMPRESSION: No sonographic evidence for deep venous thrombosis in the visualized segments of both lower extremities.
[2016-08-23] MEDS: oxyCODONE 5 mg Immediate Release Tab PO PRN (01:59)
[2016-08-23 07:54] VITALS: BP 128/56; PULSE 71; RESP 20; TEMP 98.2; O2SAT 96
--- NOTE | 2016-08-23 10:11 | US ---
PROCEDURE: Ultrasound of the Bladder HISTORY: incontinence. need post voidal ultrasound COMPARISON: None available. TECHNIQUE: Sonographic evaluation of the bladder was performed. FINDINGS: Grossly normal in appearance without wall thickening or intraluminal debris. No calculus or gross mass lesion. No free fluid in pelvis. Bilateral ureteral jets are visualized on color flow imaging Prevoid Volume: 418.63 cc. Post void residual: 244.54 cc. IMPRESSION: Large postvoid residual.
--- NOTE | 2016-08-23 11:41 | CP.PCM.PN ---
Subjective - Date & Time of Evaluation Date of Evaluation: 08/23/16 Time of Evaluation: 09:00 - Subjective Subjective: Progress note: CHIEF COMPLAINT: Follow up for low back pain, dizziness and headache. SUBJECTIVE: The patient is no longer dizzy. It has some vertiginous component to it, likely vestibular rather than central. He had an MRI for his back pain. It is bearable, but he is sitting up in the chair with no difficulty. He had an MRI of the lumbosacral spine, which showed L1-L2 disk bulging with facet arthropathy contributing to severe central canal stenosis and bilateral foraminal stenosis, L2-L3 disk bulge with thecal sac indentation, L3-L4 disk bulge with facet arthropathy and chronic to moderate central canal stenosis, right facet joint effusion, L4-L5 disk bulge with discogenic changes, severe bilateral foraminal stenosis, mild to moderate central canal stenosis and L5-S1 disk bulge of roughly 5 mm possible fragment in the right lateral recess. He is awaiting neurosurgical evaluation. He is on gabapentin for neuropathic pain as well as methocarbamol. Will need PT as outpatient. Neurosurgery has seen the patient and recommend l1-l2 laminectecomy. 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 REVIEW OF SYSTEMS: A 14-point review of systems is negative except as in the HPI. ALLERGIES: TERAZOSIN. CURRENT MEDICATIONS: Reviewed via nurse's reconciliation sheet. SOCIAL HISTORY: No illicit drug use, smoking, or EtOH abuse. FAMILY HISTORY: Noncontributory. PHYSICAL EXAMINATION: VITAL SIGNS: Reviewed. GENERAL: The patient is sitting up in the chair, in no acute distress. HEENT: Atraumatic, normocephalic. PERRLA. Extraocular muscles intact. NECK: Supple, no JVD, no adenopathy noted. LUNGS: Clear to auscultation. No adventitious sounds. HEART: S1, S2, normal rate and rhythm. No murmurs, rubs, or gallops. ABDOMEN: Soft, nontender, nondistended. Bowel sounds are present. EXTREMITIES: No clubbing, no cyanosis. Peripheral pulses 2+ felt bilaterally. NEUROLOGIC: The patient is alert, oriented to person, place, month and year. Speech is fluent, without any errors. Cranial nerves II-XII are intact. Motor: Moves all extremities equally. No atrophy noted. Sensory: Decreased light touch and pinprick up to the calves bilaterally. Decreased vibration of the toes and knees. Proprioception is intact. DTRs are 2+ throughout, 1 at the ankles and 1 at the knees. Coordination: Smaljn-ri-hlom intact. MUSCULOSKELETAL: Has lumbosacral tightness. Gait is deferred for now. LABORATORY: Reviewed. MRI of the lumbosacral spine as above. ASSESSMENT AND PLAN: This is a 76-year-old man with history of melanoma, history of prostate cancer, history of colon cancer status post right hemicolectomy, history of pulmonary embolism on Eliquis, history of chronic low back pain with spinal stenosis at L1-L2, history of sensorimotor polyneuropathy in bilateral lower extremities likely from his underlying history of malignancy , history of hypertension and anxiety who presented with dizziness, headache, unsteady gait and low back pain. His dizziness is more of a spinning sensation of the room with lightheadedness. It might be vestibular in nature. His unsteady gait is secondary to underlying sensorimotor polyneuropathy and superimposed underlying lumbosacral stenosis. His low back pain is likely especially on the left is more of a lumbosacral radiculopathy from likely degenerative joint disease with severe lumbar stenosis at L1-L2 which shows severe central canal stenosis and bilateral foraminal stenosis, especially at L1 -L2 along with L2-L3 disk bulge and thecal sac indentation, along with L4-L5 disk bulging discogenic changes, severe bilateral foraminal stenosis with mild to moderate central canal stenosis at L4-L5, likely all related to his low back pain. At this time, would recommend: 1. Neurosurgical intervention for his low back pain, especially at L1-L2, L4- L5 level since his back pain is debilitating. 2. Pain management consultation. 3. Continue with gabapentin and advise no overuse since the patient was taking extra gabapentin pills at home, which can relate to his dizziness. 4. Continue his methocarbamol 500 mg p.o. t.i.d. for lower back spasms. 5. Will need PT, OT as outpatient 6. At this time, continue his Eliquis and aspirin for stroke prevention. Continue current present medical management. Neurosurgery has seen the patient and recommend l1-l2 laminectecomy and f/u as outpatient. Thank you for this followup. Will see him as an outpatient. Rickey Bay MD Objective - Vital Signs/Intake and Output Vital Signs (last 24 hours): Temp Pulse Resp BP Pulse Ox 98.2 F 71 20 128/56 L 96 08/23/16 07:30 08/23/16 07:30 08/23/16 07:30 08/23/16 07:30 08/23/16 07:30 Intake and Output: 08/23/16 08/23/16 06:59 18:59 Intake Total 600 Output Total 1700 Balance -1100 - Medications Medications: Current Medications Apixaban (Eliquis) 10 mg PO BID TONG PRN Reason: Protocol Last Admin: 08/22/16 17:10 Dose: 10 mg Aspirin (Ecotrin) 81 mg PO DAILY [facility] Last Admin: 08/22/16 09:50 Dose: 81 mg Bupropion HCl (Wellbutrin Sr 150 Mg) 150 mg PO BID [facility] Last Admin: 08/22/16 17:11 Dose: 150 mg Diltiazem HCl (Cardizem Cd) 240 mg PO DAILY [facility] Last Admin: 08/22/16 09:55 Dose: 240 mg Gabapentin (Neurontin) 800 mg PO HS [facility] Last Admin: 08/22/16 21:44 Dose: 800 mg Gabapentin (Neurontin) 400 mg PO QID TONG PRN Reason: Protocol Last Admin: 08/22/16 21:44 Dose: Not Given Hydralazine HCl (Apresoline) 50 mg PO TID [facility] Last Admin: 08/22/16 17:33 Dose: 50 mg Lorazepam (Ativan) 0.5 mg PO DAILY TONG PRN Reason: Protocol Last Admin: 08/22/16 09:42 Dose: 0.5 mg Magnesium Hydroxide (Milk Of Magnesia) 30 ml PO DAILY PRN PRN Reason: Constipation Methocarbamol (Robaxin) 500 mg PO TID [facility] Last Admin: 08/22/16 17:33 Dose: 500 mg Mirtazapine (Remeron) 15 mg PO DAILY [facility] Last Admin: 08/22/16 10:04 Dose: 15 mg Non-Formulary Medication (Mirabegron [Myrbetriq]) 65 mg PO DAILY [facility] Last Admin: 08/22/16 10:00 Dose: Not Given Non-Formulary Medication (Cholecalciferol (Vitamin D3) [Vitamin D3]) 2,400 unit NA DAILY [facility] Last Admin: 08/22/16 10:51 Dose: Not Given Oxycodone HCl (Oxycodone Immediate Release Tab) 5 mg PO Q6H PRN PRN Reason: Arthritis Last Admin: 08/23/16 01:59 Dose: 5 mg Pantoprazole Sodium (Protonix Ec Tab) 40 mg PO DAILY [facility] Last Admin: 08/22/16 09:42 Dose: 40 mg Pregabalin (Lyrica) 50 mg PO BID [facility] Last Admin: 08/22/16 17:11 Dose: 50 mg - Labs Labs: PT 11.2 Seconds (9.9-11.8) 08/19/16 23:20 INR 1.04 (0.93-1.08) 08/19/16 23:20 APTT 31.0 Seconds (23.7-30.8) H 08/19/16 23:20
--- NOTE | 2016-08-23 11:42 | PN ---
DATE: 08/23/2016 REASON FOR CONSULTATION AND FOLLOWUP: Complaining of back pain, lumbar pain, neck pain, and dizzines s. BRIEF CLINICAL HISTORY: A 76-year-old male with past medical history significant for multiple cancer s including prostate, colon, right hemicolectomy, melanoma, peptic ulcer disease, hypertension, admit courtney with complaint of dizziness. The patient is waiting for ____ MRI. Denies any chest pain, shortn ess of breath, any palpitation. Recent cardiac workup was negative. PHYSICAL EXAMINATION: VITAL SIGNS: Temperature afebrile, heart rate 71, blood pressure 128/56. HEENT: PERRLA. Extraocular muscles intact. NECK: Supple. No carotid bruits. No thyromegaly. CHEST: Clear to auscultation. HEART: S1, S2 regular. ABDOMEN: Soft. EXTREMITIES: Clubbing and cyanosis negative. LABORATORY DATA: Blood workup as follows: WBC ____, hemoglobin ____, hematocrit 39.1, platelet coun t 189. Chemistry shows sodium 141, potassium 4.6, chloride 104, carbon dioxide 28, anion gap of 14, BUN 18, creatinine 1.0. Troponin 0.01 negative. IMPRESSION: Atypical chest pain, no evidence of acute coronary syndrome, history of recent cardiac w orkup including echo 11/16/2015, ejection fraction 55%, right ventricle moderately dilated, trace aort ic regurgitation, trace to mild mitral regurgitation, mild tricuspid regurgitation, right ventricular systolic pressure of 35. The patient's stress test 10/27/2014 essentially negative. RECOMMENDATION: Continue neuro workup. We will discontinue telemetry. We will follow with you. No evidence of acute coronary syndrome. CVS status is stable. Okay to be discharged from cardiology p oint of view. No evidence for DVT. The patient had MRI of the lumbar spine done that shows a prolap sed intervertebral disk and severe central canal stenosis and bilateral foraminal stenosis at the lev el of L1 and L2. Thank you, Dr. Angel, for providing the opportunity in taking care of the patient. Judah Alvarez MD cc: [id number] TT: 08/23/2016 11:40:59 Confirmation # [id number] Dictation # [id number]
[2016-08-23] MEDS: CHOLECALCIFEROL SCH (11:49)
[2016-08-23] MEDS: MIRABEGRON PO SCH (11:49)
[2016-08-23] MEDS: diltiaZEM 240 mg/24 Hours CD Cap PO SCH (11:49)
[2016-08-23] MEDS: Pantoprazole 40 mg EC Tab PO SCH (11:50)
[2016-08-23] MEDS: Methocarbamol 500 MG Tab PO SCH (11:50)
[2016-08-23] MEDS: buPROPion SR 150 MG TABLET PO SCH (11:50)
--- NOTE | 2016-08-25 09:31 | PN ---
DATE: 08/22/2016 The patient was seen on the 5th floor. He is comfortable, no distress except his chronic back pain a nd incontinence. Seen by a neurologist/Dr. Satya Gama and also by Dr. Sow. The patient has no chest pain, no shortness of breath. PHYSICAL EXAMINATION: VITAL SIGNS: Temperature is 97.8, heart rate 78, blood pressure 156/76, respirations 18, saturation 95% on room air. HEAD AND NECK: Normal. No JVD, no thyromegaly. CHEST: Clear. CARDIAC: First sound, second sound normal. ABDOMEN: Soft, nontender. EXTREMITIES: No edema. NEUROLOGIC: Moves all extremities, nonfocal. LABORATORY: The patient has a postvoid of 244 mL of urine. He has also venous Doppler of lower extr emity that was negative. He is seen by consultation, Dr. Sow and Dr. Satya Gama - Dr. Sow for urology, and Zia Gama for neurology/neurosurgery. Recommendation for laminectomy. ASSESSMENT AND PLAN: 1. Severe intractable back pain. The patient seems better. Also, he may need laminectomy because h e complained of numbness and complained of weakness and back pain. The patient will think about it. He mentioned his mother had it then she was doing better, so he will consider it. 2. Urinary incontinence, probably; could be overflow incontinence. His postvoid is large, 244. Jovany l continue Myrbetriq and will continue follow up as outpatient. 3. Hypertension. 4. Peripheral neuropathy. 5. History of pulmonary embolism and deep venous thrombosis. Continue Eliquis. 6. Peripheral neuropathy. Continue Neurontin. Lyrica will be better. Will discuss with the patien t about giving him Lyrica. His insurance may be a problem, so we may go back on Neurontin as outpati ent. Continue current medicines. Follow up clinically. Marin Angel MD cc: [phone] TT: 08/25/2016 09:29:52 Confirmation # [id number] Dictation # [id number] [email or web address]
--- NOTE | 2016-08-25 20:54 | DS ---
HISTORY OF PRESENT ILLNESS: A 76-year-old male was admitted with severe intractable back pain and we akness. Was brought into the ER, admitted, evaluated by neurology and neurosurgeon. The patient adv ised to stay in and get the surgery done. He wants to go home. The patient was discharged and was a dvised to follow up with the neurosurgeon for surgical treatment. The patient had a CT of the spine and MRI of the spine which showed severe spinal stenosis with sever e arthritis, with foraminal stenosis, closing pressure on the nerves. The patient also advised to f[place] ve an MRI of the head and neck, but he wanted to go home, so he was let go home and discharged, to fo llow up as outpatient. While he was in the hospital he also had some incontinence and recommended to see Dr. Sow. Will put him on Myrbetriq. The patient was stable hemodynamically and was discharged home. Discharge date was 09/09/2016. PHYSICAL EXAMINATION: VITAL SIGNS: Temperature 98.2, heart rate 71, blood pressure 128/56, respiration 20, saturation 96%. GENERAL: His physical exam, clinically, no change from before. HEAD AND NECK: Normal. CHEST: Clear. CARDIAC: First sounds, second sounds are normal. ABDOMEN: Obese, nontender. EXTREMITIES: No edema. NEUROLOGIC: His back exam is the same. Decreased range of motions. The patient had an MRI, as I mentioned. Showed severe stenosis. DISCHARGE DIAGNOSES: 1. Severe spinal stenosis. Is seen by neurosurgery. Need to follow up with him. 2. Urinary incontinence probably. The patient was given Myrbetriq. All his prescriptions were sent to his pharmacy at [facility] ([facility] 3. Chronic back pain was worsening, chronic headache, chronic neck pain. The patient was given oxyc odone for 5 days. to be followed up by Dr. Marin Bass for pain management. 4. Hypertension, hypercholesterolemia, morbid obesity, history of colon cancer, peripheral neuropath y, history of pulmonary embolism, deep venous thrombosis. PLAN: To continue Eliquis, also, 5 mg b.i.d., and resume all his medications. Discussed with the sara josé in detail about all his meds. He is getting Valium 5 mg b.i.d., Cardizem-CD 240, aspirin 81, E liquis 5 b.i.d., milk of magnesia, Myrbetriq, Lyrica, Protonix, Remeron, Robaxin 500 mg t.i.d., and w as given vitamin D and Wellbutrin 150 p.o. b.i.d. Marin Angel MD cc: [phone] TT: 08/25/2016 20:53:58 dn
== END 2016-08-23 12:15 | disposition home or self-care (01) ==
LOC: ED 22:17 → ERH 08-20 02:50 → 2RNO 08-20 13:21 → 5RNO 08-22 18:42
PROVIDERS: ADMIT Internal Medicine; ATTEND Internal Medicine
DX: M51.16 Intervertebral disc disorders with radiculopathy, lumbar region (principal); M48.06 Spinal stenosis, lumbar region; I10 Essential (primary) hypertension; G62.9 Polyneuropathy, unspecified; F41.9 Anxiety disorder, unspecified; R55 Syncope and collapse; R59.0 Localized enlarged lymph nodes; M48.07 Spinal stenosis, lumbosacral region; R42 Dizziness and giddiness; R07.89 Other chest pain; K21.9 Gastro-esophageal reflux disease without esophagitis; E66.01 Morbid (severe) obesity due to excess calories; Z68.33 Body mass index [BMI] 33.0-33.9, adult; Z79.01 Long term (current) use of anticoagulants; Z86.711 Personal history of pulmonary embolism; Z86.718 Personal history of other venous thrombosis and embolism; Z85.46 Personal history of malignant neoplasm of prostate; Z85.820 Personal history of malignant melanoma of skin; Z90.49 Acquired absence of other specified parts of digestive tract; Z85.038 Personal history of other malignant neoplasm of large intestine; Z92.21 Personal history of antineoplastic chemotherapy; Z87.891 Personal history of nicotine dependence
CPT/HCPCS: 36415; 70450; 71010; 71275; 72132; 72148; 73610; 76857; 80053; 81003; 82550; 83615; 83735; 83880; 84484; 85027; 85610; 85730; 93005; 93970; 97116; 97162; 99285; G0378; G8978; G8979; Q9967

== ENCOUNTER 2018-04-10 07:20 | Outpatient (CLI) | payer MEDICARE | END 2018-04-10 07:21 | disposition home or self-care (01) | LOC: RAD 07:20 | DX: M54.17 Radiculopathy, lumbosacral region (principal) ==

== ENCOUNTER 2018-04-26 06:19 | Outpatient (CLI) | payer MEDICARE | END 2018-04-26 06:20 | disposition home or self-care (01) | LOC: CARDIO 06:19 | DX: R06.02 Shortness of breath (principal); I10 Essential (primary) hypertension; E66.09 Other obesity due to excess calories; E78.00 Pure hypercholesterolemia, unspecified; Z79.82 Long term (current) use of aspirin; Z79.01 Long term (current) use of anticoagulants; Z79.899 Other long term (current) drug therapy; Z85.038 Personal history of other malignant neoplasm of large intestine; Z85.46 Personal history of malignant neoplasm of prostate; Z85.828 Personal history of other malignant neoplasm of skin ==